=== PATIENT | female | born 1995 | race Caucasian/White ===

== ENCOUNTER → 2017-04-27 | Outpatient (CLI) | payer OTHER ==
[~2017-04-27] MED LIST: BIRTH CONTROL PO; EFFEXOR 75M75 MG/TAB PO; NO HOME MEDICATIONS; XANAX 0.5MG0.5 MG PO
== END ==
LOC: COL.RAD 04-10 11:15
DX: R79.89 Other specified abnormal findings of blood chemistry (principal); K76.0 Fatty (change of) liver, not elsewhere classified

== ENCOUNTER 2019-06-23 04:48 | Emergency (ER) | payer BC ==
[~2019-06-23] VITALS: Ht 162.6 cm; Wt 139.5 kg
[2019-06-23 04:54] VITALS: TEMP 98.5
[2019-06-23] MEDS ORDERED: ATARAX 25MG25 MG/TAB PO (04:57)
[2019-06-23 05:37] LABS: STREP SCREEN NEGATIVE
[2019-06-23 05:59] LABS: MEAN CELL VOLUME 94 fl (80.0-100.0); MEAN CORPUSCULAR HEMOGLOBIN 31 pg (27.0-31.0); MEAN CORPUSCULAR HGB CONC 33 g/dl (33.0-37.0); MEAN PLATELET VOLUME 9.4 fl (7.4-10.4); PLATELET COUNT 174 K/mm3 (130-400); RED BLOOD COUNT 3.82 M/mm3 (4.10-5.30); REDCELL DISTRIBUTION WIDTH-CV 12.6 % (11.5-14.5)
[2019-06-23 06:01] LABS: HEMATOCRIT 35.9 % (37.0-47.0)
[2019-06-23 06:07] LABS: BILIRUBIN,TOTAL 0.3 mg/dL (0.0-1.0); CREATININE, serum 0.62 (0.52-1.25); POTASSIUM 4.2 mmol/L (3.4-5.0); TOTAL PROTEIN 7.1 gm/dL (6.4-8.2)
[2019-06-23 06:26] LABS: BAND 16 % (0-10); EOSINOPHIL 1 % (0-4); METAMYELOCYTE 1 % (0-0); NEUTROPHILS 38 % (42.0-75.2); PLATELET ESTIMATE NORMAL (NORMAL)
[2019-06-23 06:29] LABS: LYMPHOCYTE 40 % (20.0-51.0)
[2019-06-23 06:32] LABS: MONOSCREEN POSITIVE
[2019-06-23] MEDS ORDERED: CLEOCIN 751500 MG/10 PO (07:37)
[2019-06-23] MEDS ORDERED: PREDNISONE10 MG PO (07:37)
[2019-06-23 08:21] VITALS: BP 140/108; PULSE 93
== END 2019-06-23 08:30 | disposition home or self-care (01) ==
LOC: COL.ER 04:48
PROVIDERS: Emergency Medicine
DX: J03.80 Acute tonsillitis due to other specified organisms (principal); B27.90 Infectious mononucleosis, unspecified without complication; F32.9 Major depressive disorder, single episode, unspecified; F41.9 Anxiety disorder, unspecified
CPT/HCPCS: J1100; J7030; Q9967

== ENCOUNTER → 2020-03-05 | Outpatient (CLI) | payer BC ==
[~2020-03-05] MED LIST changes: +ATARAX 25MG25 MG/TAB PO; +CLEOCIN 751500 MG/10 PO; +PREDNISONE10 MG PO
== END ==
LOC: ZCOL.LAB 16:11
DX: R50.9 Fever, unspecified (principal); R05 Cough; Z20.828 Contact with and (suspected) exposure to other viral communicable diseases

== ENCOUNTER → 2020-08-31 | Outpatient (CLI) | payer BC ==
[2020-08-31 16:08] LABS: HEMOGLOBIN 10.2 g/dl (12.5-16.0); MEAN CELL VOLUME 95 fl (80.0-100.0); MEAN CORPUSCULAR HEMOGLOBIN 30 pg (27.0-31.0); MEAN CORPUSCULAR HGB CONC 32 g/dl (33.0-37.0); MEAN PLATELET VOLUME 9.3 fl (7.4-10.4); PLATELET COUNT 332 K/mm3 (130-400); RED BLOOD COUNT 3.36 M/mm3 (4.10-5.30); REDCELL DISTRIBUTION WIDTH-CV 12.3 % (11.5-14.5)
[2020-08-31 16:20] LABS: HEMATOCRIT 31.8 % (37.0-47.0)
== END ==
LOC: COL.LAB 15:42
PROVIDERS: Internal Medicine
DX: N92.1 Excessive and frequent menstruation with irregular cycle (principal)

== ENCOUNTER 2021-12-20 02:42 | Observation (INO) | payer BC ==
[~2021-12-20] VITALS: Ht 160 cm; Wt 144.5 kg
[2021-12-20] VITALS (11 sets, daily range): BP systolic 114–155; BP diastolic 60–86; PULSE 69–95; TEMP 97.2–98.5
[2021-12-20 03:23] LABS: COLLECTION METHOD CLEAN CATCH
[2021-12-20 03:26] LABS: BASO # 0.1 K/mm3 (0.0-0.2); BASO % 0.6 % (0.0-2.0); EOS # 0.1 K/mm3 (0.0-0.7); GRAN # 7.6 K/mm3 (1.4-6.5); GRAN % 74.4 % (42.2-75.2); LYMPH # 1.6 K/mm3 (1.2-3.4); LYMPH % 15.4 % (20.0-51.0); MEAN CELL VOLUME 76 fl (80.0-100.0); MEAN CORPUSCULAR HGB CONC 30 g/dl (33.0-37.0); MEAN PLATELET VOLUME 9.6 fl (7.4-10.4); MONO # 0.8 K/mm3 (0.1-0.6); MONO % 7.7 % (1.7-9.3); PLATELET COUNT 442 K/mm3 (130-400)
[2021-12-20 03:32] LABS: MUCOUS Present (NOT PRESENT); PH 5 (5-8); URINE APPEARANCE Hazy (CLEAR/HAZY); URINE BACTERIA None Seen /hpf (NONE SEEN); URINE BILIRUBIN Negative (NEGATIVE); URINE BLOOD Negative (NEGATIVE); URINE COLOR Yellow (YELLOW); URINE GLUCOSE Negative (NEGATIVE); URINE KETONE Negative (NEGATIVE); URINE LEUKOCYTE ESTERASE Negative (NEGATIVE); URINE NITRATE Negative (NEGATIVE); URINE PROTEIN(semi-quant) Negative (NEGATIVE); URINE RBC 0-2 /hpf (0-2)
[2021-12-20 03:39] LABS: HEMATOCRIT 26.4 % (37.0-47.0); HEMOGLOBIN 7.8 g/dl (12.5-16.0); MEAN CORPUSCULAR HEMOGLOBIN 22 pg (27-31)
[2021-12-20 03:40] LABS: RED BLOOD COUNT 3.47 M/mm3 (4.10-5.30)
[2021-12-20 03:44] LABS: ALBUMIN 4.2 gm/dL (3.5-5.0); BILIRUBIN,TOTAL 0.3 mg/dL (0.2-1.2); CALCIUM 8.8 mg/dL (8.4-10.2); CREATININE, serum 0.93 mg/dL (0.57-1.11); POTASSIUM 3.5 mmol/L (3.5-4.5); TOTAL PROTEIN 7.2 gm/dL (6.2-8.1)
--- NOTE | 2021-12-20 14:58 | NUR ---
1440PATIENT ARRIVED TO FLOOR VIA BED. PATIENT SETTLED IN ROOM. CALL LIGHT PLACED WITHIN REACH. PATIENT AGREEABLE WITH PLAN OF CARE.
--- NOTE | 2021-12-20 15:13 | NUR ---
[id number] 100%, OXYMASK ON AT 3L 1445 SAO2 98%, OXYMASK ON AT 3L 1455 SAO2 93%, OXYMASK ON AT 3L 1510ASSISTED PATIENT TO NASAL CANULA, REMAINS AT 3L. WILL CONTINUE TO MONITOR.
--- NOTE | 2021-12-20 15:44 | NUR ---
[id number] 99%, O2 AT 3L VIA NC [id number] 91%, O2 AT 3LVIA NC 1530 SAO2 99%, O2 AT 3L VIA NC 1540 SAO2 98%, O2 AT 2L
--- NOTE | 2021-12-20 16:08 | NUR ---
[id number] 99%, O2 AT 2L NC 1608NC TURNED TO 1L AT THIS TIME
--- NOTE | 2021-12-20 16:52 | NUR ---
[id number] 98% ON 1L NC
--- NOTE | 2021-12-20 17:07 | NUR ---
1650NC REMOVED AT THIS TIME [id number] 97% ON ROOM AIR
--- NOTE | 2021-12-20 20:30 | NUR ---
2030 INT IN RIGHT AC DC'D. INT IN LEFT HAND REMAINS. UP TO BR WITH ASSIST. BROOKS DCD WITH 300CC IN BAG. PERICARE DONE. RETURNED TO BED. HARSH WELL.
[2021-12-21] VITALS: BP 126/65; PULSE 73; TEMP 98.8
[2021-12-21 05:00] VITALS: BP 121/61; PULSE 71; TEMP 98
[2021-12-21 07:45] VITALS: BP 121/58; PULSE 61; TEMP 97.7
--- NOTE | 2021-12-21 09:00 | NUR ---
Patient crying and upset due to finding out her insurance had been terminated that she has through her . This RN calls family welfare social work professor/finance for assistance.
[2021-12-21] MEDS ORDERED: IBU600 MG PO (09:17)
[2021-12-21] MEDS ORDERED: PERCOCET 325 MG1 TA2 PO (09:17)
--- NOTE | 2021-12-21 10:03 | NUR ---
Initial visit; Patient thanked Lead Ruby On Rails Developer for looking in on her and offering God's blessings.
--- NOTE | 2021-12-21 10:37 | NUR ---
licensed master social worker met with patient and patient's Brown at bedside. Brown has been in contact with both his HR in addition to his insurance company. According to Brown, [facility] can pull the patient up under his plan but shows her as "inactive". When he spoke with his HR they can see where she is on his plan and is paying for her coverage. Brown states that [facility] is looking into the issues and is expected to contact him later today. Notified both the patient and her that our financial team is looking into her coverage and that i have reached out to our financial counselor to meet with them to complete a FAA should the situation no get resolved today. Educated them both that if they get it resolved after she is discharged, then to call the hospital and we can resubmit the claim. Encouraged them to stay in contact with Brown' employer in addition to his insurance company. Patient is provided the [facility] Resource guide and educated on the supports in the area that could help them out. All other questions answered and hospital team updated.
--- NOTE | 2021-12-21 13:15 | NUR ---
Finance/social sciences chair at bedside assisting patient. Patient states feeling much better about situation. 1400: This RN gives discharge instructions and patient verbalizes understanding. 1405: Patient ambulates off unit with spouse and DIGITIZER OPERATOR student.
--- NOTE | 2021-12-21 13:34 | NUR ---
sheet metal worker notified that the patient is going to go home with new perscriptions and may need help affording them. Upon entering unit, the patient was meeting with the financial counselor. Collaborated with the patients RN who states that the patient has been written a perscription for Ibuprpfen 600 mg qty.30 and Oxycodone 5/325 qty. 30 tablets. Phone call made to Karime Watson to see what the out of pocket cost would be for the patient. Soraya stated that the hoffman mckeon for the Oxycodone is $40.99 but that the patient could go through [facility] and it would drop the mckeon down to $12.52. The Ibuprofen hoffman mckeon would be $11.49 but not able to tell me the [facility] mckeon at this time. Soraya states that she will leave the discount card on the patients file. Patients RN notified to inform the patient since she is getting ready to discharge. Encouraged the RN to reach out to me if the patient expresses any concerns.
== END 2021-12-21 14:05 | disposition home or self-care (01) ==
LOC: COL.ER 02:42 → OB 10:46
PROVIDERS: Emergency Medicine; ADMIT Obstetrics & Gynecology
DX: N83.8 Other noninflammatory disorders of ovary, fallopian tube and broad ligament (principal); D50.9 Iron deficiency anemia, unspecified; N92.1 Excessive and frequent menstruation with irregular cycle; N94.6 Dysmenorrhea, unspecified; E66.01 Morbid (severe) obesity due to excess calories; Z20.822 Contact with and (suspected) exposure to COVID-19; Z68.43 Body mass index [BMI] 50.0-59.9, adult
CPT/HCPCS: A4314; G0378; J0690; J1100; J1170; J1885; J2405; J2704; J2710; J3010; J7120; Q9967

== ENCOUNTER 2024-02-04 10:09 | Emergency (ER) | payer OTHER ==
[~2024-02-04] VITALS: Ht 157.5 cm; Wt 104.5 kg
[~2024-02-04 10:09] MED LIST changes: +IBU600 MG PO; +PERCOCET 325 MG1 TA2 PO
[2024-02-04 10:13] VITALS: BP 165/83; TEMP 98.5
[2024-02-04] MEDS ORDERED: LORazepam 2 MG/ML 1 ML VIAL IV ONE (11:15)
[2024-02-04 12:04] LABS: BASO % 0.5 % (0.0-2.0); EOS # 0.1 K/mm3 (0.0-0.7); EOS % 0.9 % (0.0-4.0); GRAN # 4.6 K/mm3 (1.4-6.5); GRAN % 71.2 % (42.2-75.2); HEMATOCRIT 37.1 % (37.0-47.0); HEMOGLOBIN 12.4 g/dl (12.5-16.0); LYMPH # 1.5 K/mm3 (1.2-3.4); LYMPH % 22.4 % (20.0-51.0); MEAN CELL VOLUME 96 fl (80.0-100.0); MEAN CORPUSCULAR HEMOGLOBIN 32 pg (27-31); MEAN CORPUSCULAR HGB CONC 33 g/dl (33.0-37.0); MEAN PLATELET VOLUME 11.9 fl (7.4-10.4); MONO # 0.3 K/mm3 (0.1-0.6); MONO % 4.8 % (1.7-9.3); PLATELET COUNT 195 K/mm3 (130-400); RED BLOOD COUNT 3.86 M/mm3 (4.10-5.30); REDCELL DISTRIBUTION WIDTH-CV 12.6 % (11.5-14.5)
[2024-02-04 12:33] LABS: ALANINE AMINOTRANSFERASE 15 U/L (0-55); ALBUMIN 3.9 g/dL (3.5-5.0); ALKALINE PHOSPHATASE 25 U/L (40-150); ANION GAP 11 mmol/L (7-16); AST,SGOT 13 U/L (5-34); BLOOD UREA NITROGEN 7 mg/dL (7-19); CALCIUM 9.7 mg/dL (8.4-10.2); CHLORIDE 109 mEq/L (98-107); CREATININE, serum 0.85 mg/dL (0.57-1.11); GLUCOSE 90 mg/dL (70-99); POTASSIUM 3.8 mEq/L (3.5-4.5); SODIUM 140 mEq/L (136-145); TOTAL PROTEIN 7.2 g/dl (6.2-8.1)
[2024-02-04 12:35] LABS: TROPONIN-I < 0.010 ng/mL (0.00-0.033)
[2024-02-04 12:37] LABS: BILIRUBIN,TOTAL 0.3 mg/dL (0.2-1.2)
[2024-02-04 14:29] VITALS: PULSE 68
== END 2024-02-04 15:49 | disposition home or self-care (01) ==
LOC: COL.ER 10:09
PROVIDERS: Nurse Practitioner
DX: R06.02 Shortness of breath (principal)
CPT/HCPCS: J2060

== ENCOUNTER 2024-03-15 10:31 | Emergency (ER) | payer OTHER ==
[~2024-03-15] VITALS: Ht 157.5 cm; Wt 99.5 kg
[2024-03-15 10:37] VITALS: TEMP 98.2
[2024-03-15] MEDS ORDERED: Methocarbamol 500 MG TAB PO ONE (11:15)
[2024-03-15] MEDS ORDERED: Acetaminophen 500 MG TAB PO ONE (11:15)
[2024-03-15 11:31] LABS: BASO % 0.5 % (0.0-2.0); EOS # 0.1 K/mm3 (0.0-0.7); EOS % 0.7 % (0.0-4.0); GRAN # 5.5 K/mm3 (1.4-6.5); GRAN % 67.1 % (42.2-75.2); HEMATOCRIT 41.4 % (37.0-47.0); HEMOGLOBIN 13.5 g/dl (12.5-16.0); LYMPH % 24.1 % (20.0-51.0); MEAN CELL VOLUME 94 fl (80.0-100.0); MEAN CORPUSCULAR HEMOGLOBIN 31 pg (27-31); MEAN CORPUSCULAR HGB CONC 33 g/dl (33.0-37.0); MEAN PLATELET VOLUME 10.3 fl (7.4-10.4); MONO # 0.6 K/mm3 (0.1-0.6); MONO % 7.4 % (1.7-9.3); PLATELET COUNT 274 K/mm3 (130-400); REDCELL DISTRIBUTION WIDTH-CV 12.5 % (11.5-14.5)
[2024-03-15 11:51] LABS: ALANINE AMINOTRANSFERASE 74 U/L (0-55); ALBUMIN 4.3 g/dL (3.5-5.0); ALKALINE PHOSPHATASE 28 U/L (40-150); ANION GAP 14 mmol/L (7-16); AST,SGOT 30 U/L (5-34); BILIRUBIN,TOTAL 0.5 mg/dL (0.2-1.2); CALCIUM 9.6 mg/dL (8.4-10.2); CHLORIDE 108 mEq/L (98-107); CREATININE, serum 0.82 mg/dL (0.57-1.11); GLUCOSE 96 mg/dL (70-99); POTASSIUM 4.2 mEq/L (3.5-4.5); SODIUM 143 mEq/L (136-145)
[2024-03-15 11:57] LABS: BLOOD UREA NITROGEN < 5 mg/dL (7-19)
[2024-03-15] MEDS ORDERED: Iohexol 300 - 100 ML VIAL IV ONE (12:27)
[2024-03-15] MEDS ORDERED: NS 100 ML IV ONE (12:28)
[2024-03-15] MEDS ORDERED: ROBAXIN 50500 MG/TAB PO (13:35)
[2024-03-15 14:33] VITALS: BP 167/109; PULSE 77
== END 2024-03-15 14:38 | disposition home or self-care (01) ==
LOC: COL.ER 10:31
PROVIDERS: Emergency Medicine
DX: M54.6 Pain in thoracic spine (principal); V89.2XXA Person injured in unspecified motor-vehicle accident, traffic, initial encounter; Y92.410 Unspecified street and highway as the place of occurrence of the external cause
CPT/HCPCS: Q9967